=== PATIENT | female | born 1985 | race Caucasian/White ===

== ENCOUNTER 2022-08-01 10:52 | Day surgery (SDC) | payer BC ==
[~2022-08-01 10:52] MED LIST: Albuterol 0.083% 2.5 MG/3 ML Neb Soln NEB PRN; Chloroprocaine 10 MG/ML 5 ML Amp ONE; HYDROmorphone 1 MG/ML Syringe IVPUSH PRN; Lactated Ringers 1,000 ML IV SCH; Metoclopramide 10 MG/2 ML SDV IVPUSH PRN; Morphine 2 MG/ML SYRINGE IVPUSH PRN; Naloxone 0.4 MG/ML SDV IVPUSH PRN; Ondansetron 4 MG/2 ML SDV IVPUSH PRN; droPERidol 5 MG/2 ML SDV IVPUSH PRN; fentaNYL 50 MCG/ML SDV IVPUSH PRN
[2022-08-01] MEDS ORDERED: Azithromycin 500 MG in Sodium Chloride 0.9% 250 ML IV ONE (11:26)
[2022-08-01] MEDS ORDERED: Sodium Chloride 0.9% 20 ML SDV IV PRN (11:26)
[2022-08-01] MEDS ORDERED: Sodium Chloride 0.9% 2.5 ML Syringe FLUSH PRN (11:26)
[2022-08-01] MEDS ORDERED: Sodium Chloride 0.9% 10 ML Syringe FLUSH PRN (11:26)
== END 2022-08-01 19:40 ==
LOC: MW.SDS 10:52 → MW.OB 11:26 → MW.SDS 19:40
PROVIDERS: ATTEND Obstetrics & Gynecology
DX: O34.42 Maternal care for other abnormalities of cervix, second trimester (principal); O26.872 Cervical shortening, second trimester; O09.512 Supervision of elderly primigravida, second trimester; O99.612 Diseases of the digestive system complicating pregnancy, second trimester; K21.9 Gastro-esophageal reflux disease without esophagitis; Z36.1 Encounter for antenatal screening for raised alphafetoprotein level; Z79.899 Other long term (current) drug therapy; Z3A.00 Weeks of gestation of pregnancy not specified
CPT/HCPCS: 36415; 59320; 85027; J0131; J2401; J7120

== ENCOUNTER 2022-09-01 08:51 | Observation (INO) | payer BC ==
[2022-09-01] MEDS ORDERED: Betamethasone Acetate/Betamethasone Sod Phosphate 6 MG/1 ML MDV IM ONE (09:16)
[2022-09-01] MEDS ORDERED: Carboprost Tromethamine 250 MCG/1 mL Vial IM PRN (09:18)
[2022-09-01] MEDS ORDERED: Lidocaine 1% 50 ML MDV INJECT PRN (09:18)
[2022-09-01] MEDS ORDERED: Methylergonovine 0.2 MG/1 ML Amp IM PRN (09:18)
[2022-09-01] MEDS ORDERED: Tranexamic Acid 1,000 MG in Sodium Chloride 0.9% 100 ML IV PRN (09:18)
[2022-09-01] MEDS ORDERED: Water For Irrigation,Sterile 1,000 ML Container IRR PRN (09:18)
[2022-09-01] MEDS ORDERED: Butorphanol 1 MG/ML SDV IVPUSH PRN (09:18)
[2022-09-01] MEDS ORDERED: Magnesium Sulfate/Water 4 GM in Premix Bag 1 BAG IV ONE (09:18)
[2022-09-01] MEDS ORDERED: Misoprostol 200 MCG Tab PO PRN (09:18)
[2022-09-01] MEDS ORDERED: Sodium Chloride 0.9% 20 ML SDV IV PRN (09:24)
[2022-09-01] MEDS ORDERED: Sodium Chloride 0.9% 10 ML Syringe FLUSH PRN (09:24)
[2022-09-01] MEDS ORDERED: Ampicillin 2 GM in Sodium Chloride 0.9% 100 ML IV ONE (09:24)
[2022-09-01] MEDS ORDERED: Sodium Chloride 0.9% 2.5 ML Syringe FLUSH PRN (09:24)
[2022-09-01] MEDS ORDERED: Oxytocin/0.9 % Sodium Chloride 30 UNIT/500 ML BAG IV SCH (09:30)
[2022-09-01] MEDS ORDERED: Lactated Ringers 1,000 ML IV SCH (09:30)
[2022-09-01] MEDS ORDERED: Phenylephrine HCl 0.5 MG/5 ML AMP IVPUSH PRN (09:54)
[2022-09-01] MEDS ORDERED: ePHEDrine 50 MG/ML SDV IVPUSH PRN ×2 (09:54)
[2022-09-01 10:00] LABS: HEMATOCRIT 35.7 % (36.0-46.0); HEMOGLOBIN 12.4 g/dL (12.0-16.0); MEAN CORPUSCULAR HEMOGLOBIN 29.4 pg (27.0-32.0); MEAN CORPUSCULAR HGB CONC 34.7 g/dL (31.0-37.0); MEAN CORPUSCULAR VOLUME 84.6 fL (80.0-98.0); MEAN PLATELET VOLUME 10.7 fL (7.40-12.00); RED BLOOD CELL COUNT 4.22 M/uL (4.30-5.90); WHITE BLOOD CELL COUNT,WBC 16.24 K/uL (4.0-11.0)
[2022-09-01] MEDS ORDERED: Magnesium Sulfate/Water 20 GM/500 ML BAG IV SCH (10:00)
[2022-09-01] MEDS ORDERED: Ropivacaine HCl/PF 400 MG in Premix Bag 1 BAG EPIDUR SCH (10:00)
[2022-09-01] MEDS ORDERED: Indomethacin 25 MG Cap PO ONE (10:06)
[2022-09-01] MEDS ORDERED: Citric Acid/Sodium Citrate Solution 30 ML Cup PO ONE (10:30)
[2022-09-01] MEDS ORDERED: Azithromycin 500 MG in Sodium Chloride 0.9% 250 ML IV ONE ×2 (10:42→11:31)
[2022-09-01] MEDS ORDERED: Ondansetron 4 MG/2 ML SDV ONE (13:23)
[2022-09-01] MEDS ORDERED: Ondansetron 4 MG/2 ML SDV IVPUSH ONE (13:30)
[2022-09-01] MEDS ORDERED: Ampicillin 1 GM in Sodium Chloride 0.9% 50 ML IV SCH (13:30)
[2022-09-01] MEDS ORDERED: Indomethacin 25 MG Cap PO SCH (18:15)
[2022-09-02 11:43] LABS: GROUP B STREP BY PCR NEGATIVE (NEGATIVE)
== END 2022-09-01 14:36 ==
LOC: MW.OBCHECK 08:51 → MW.OB 08:55 → MW.OBCHECK 09:19
PROVIDERS: ADMIT Obstetrics & Gynecology; ATTEND Obstetrics & Gynecology
DX: O42.912 Preterm premature rupture of membranes, unspecified as to length of time between rupture and onset of labor, second trimester (principal); O99.891 Other specified diseases and conditions complicating pregnancy; R10.9 Unspecified abdominal pain; Z3A.23 23 weeks gestation of pregnancy
CPT/HCPCS: 36415; 76815; 85027; 86592; 86850; 86900; 86901; 87653; 96365; 96366; 96368; 96375; A9270; G0378; J0290; J0456; J0702; J2405; J3475; J3490; J7050; J7120